=== PATIENT | female | born 1970 | race Caucasian/White ===

== ENCOUNTER 2018-05-31 02:52 | Emergency (ER) | payer MEDICAID ==
[~2018-05-31] VITALS: Ht 160 cm; Wt 100.0 kg
[2018-05-31] MEDS ORDERED: ONDANSETRON HCL 4MG/2ML INJ IV ONE (03:45)
[2018-05-31] MEDS ORDERED: FAMOTIDINE 20MG/2ML VIAL IV ONE (03:45)
[2018-05-31 04:15] LABS: BASOPHILS % 0.7 % (0.0-2.0); EOSINOPHILS % 0.3 % (0.0-5.0); HEMATOCRIT. 42.9 % (36.0-48.0); HEMOGLOBIN. 14.8 g/dL (12.0-16.0); LYMPHOCYTES % 10.5 % (20.0-50.0); MEAN CORPUSCULAR HEMOGLOBIN 33.1 pg (28.0-32.0); MEAN CORPUSCULAR VOLUME 95.6 fL (81.0-99.0); MEAN PLATELET VOLUME 11.3 fl (7.4-10.4); MONOCYTES % 7.6 % (2.0-8.0); NEUTROPHILS % 80.9 % (40.0-76.0); PLATELET 129 x1000/uL (130-400); RED BLOOD CELL COUNT 4.48 mill/uL (4.2-5.4); RED CELL DISTRIBUTION WIDTH 12.1 % (11.6-14.6)
[2018-05-31 04:16] LABS: CHLORIDE 104 mEq/L (98-107)
[2018-05-31 04:30] LABS: INR 1.1; PROTHROMBIN TIME 11.4 sec (9.1-11.1)
[2018-05-31] MEDS ORDERED: SODIUM CHLORIDE 0.9% 1,000 ML IV ONE (05:00)
[2018-05-31] MEDS ORDERED: MAGNESIUM/ALUMINUM HYDROXIDE/SIMETHICONE 30ML UDC PO ONE (06:15)
[2018-05-31] MEDS ORDERED: ACETAMINOPHEN 500MG TABLET PO ONE (06:15)
[2018-05-31 10:15] LABS: KETONES URINE 2+ (NEGATIVE); LEUKOCYTE ESTERASE URINE 1+ (NEGATIVE); NITRITE URINE NEGATIVE (NEGATIVE); OCCULT BLOOD URINE NEGATIVE (NEGATIVE); PROTEIN URINE 1+ (NEGATIVE); SPECIFIC GRAVITY URINE 1.045 (1.005-1.030)
[2018-05-31 10:17] LABS: CLARITY URINE CLOUDY (CLEAR); COLOR URINE YELLOW (YELLOW)
[2018-05-31 11:30] VITALS: BP 125/65
[2018-05-31] MEDS ORDERED: HYDROCODONE/ACETAMINOPHEN 5/325MG TABLET PO ONE (11:30)
== END 2018-05-31 12:15 | disposition home or self-care (01) ==
LOC: ER 02:52
DX: K29.70 Gastritis, unspecified, without bleeding (principal); N39.0 Urinary tract infection, site not specified; I10 Essential (primary) hypertension; E11.9 Type 2 diabetes mellitus without complications; Z79.84 Long term (current) use of oral hypoglycemic drugs; R79.89 Other specified abnormal findings of blood chemistry
CPT/HCPCS: 36415; 76705; 80053; 81003; 81025; 82962; 83690; 85025; 85610; 96361; 96374; 96375; 99284; J2405; J3490